=== PATIENT | male | born 1945 | race African-American/Black ===

== ENCOUNTER 2021-07-08 09:35 | Emergency (ER) | payer MEDICARE, MEDICAID ==
[~2021-07-08] VITALS: Ht 177.8 cm; Wt 66.0 kg
[2021-07-08 09:44] VITALS: BP 137/82
[2021-07-08] MEDS ORDERED: ONDANSETRON HCL 4MG/2ML INJ IV STA (10:12)
== END 2021-07-08 10:26 | disposition left against medical advice (07) ==
LOC: ER 09:56
DX: R22.31 Localized swelling, mass and lump, right upper limb (principal)
CPT/HCPCS: 93005; 99283

== ENCOUNTER 2021-07-15 11:07 | Emergency (ER) | payer MEDICARE, MEDICAID ==
[~2021-07-15] VITALS: Ht 177.8 cm; Wt 66.0 kg
[2021-07-15 13:24] LABS: HEMATOCRIT. 33.4 % (42.0-52.0); HEMOGLOBIN. 9.8 g/dL (14.0-18.0); MEAN CORPUSCULAR HEMOGLOBIN 19.9 pg (28.0-32.0); MEAN CORPUSCULAR VOLUME 67.7 fL (80.0-94.0); MEAN PLATELET VOLUME 8.3 fl (7.4-10.4); PLATELET 515 x1000/uL (130-400); RED BLOOD CELL COUNT 4.94 mill/uL (4.7-6.1); RED CELL DISTRIBUTION WIDTH 20.4 % (11.6-14.6)
[2021-07-15 13:39] LABS: CHLORIDE 108 mEq/L (98-107)
[2021-07-15] MEDS ORDERED: IBUPROFEN 800MG TABLET PO ONE (13:45)
[2021-07-15 13:51] LABS: PLATELET ESTIMATE INCREASED
[2021-07-15 13:53] VITALS: BP 170/97
[2021-07-15] MEDS ORDERED: IBUP-2030 MT (14:09)
== END 2021-07-15 14:53 | disposition home or self-care (01) ==
LOC: ER 11:07
DX: M70.21 Olecranon bursitis, right elbow (principal); I10 Essential (primary) hypertension
CPT/HCPCS: 36415; 80053; 85025; 86140; 99283

== ENCOUNTER 2021-11-19 15:56 | Emergency (ER) | payer MEDICARE, MEDICAID ==
[~2021-11-19] VITALS: Ht 167.6 cm; Wt 52.0 kg
[~2021-11-19 15:56] MED LIST: IBUP-2030 MT
[2021-11-19] MEDS ORDERED: ACETAMINOPHEN 325MG TABLET PO STA (16:16)
[2021-11-19] MEDS ORDERED: SODIUM CHLORIDE 0.9% 1000ML BAG (SEPSIS BOLUS) IV ONE (16:30)
[2021-11-19 17:32] LABS: HEMATOCRIT. 32.9 % (42.0-52.0); HEMOGLOBIN. 10.1 g/dL (14.0-18.0); MEAN CORPUSCULAR HEMOGLOBIN 21.8 pg (28.0-32.0); MEAN CORPUSCULAR VOLUME 71.2 fL (80.0-94.0); MEAN PLATELET VOLUME 6.6 fl (7.4-10.4); PLATELET 838 x1000/uL (130-400); RED BLOOD CELL COUNT 4.63 mill/uL (4.7-6.1); RED CELL DISTRIBUTION WIDTH 20.4 % (11.6-14.6)
[2021-11-19 17:45] LABS: CHLORIDE 102 mEq/L (98-107)
[2021-11-19 18:13] LABS: PLATELET ESTIMATE INCREASED
[2021-11-20 07:20] VITALS: BP 111/62
== END 2021-11-20 07:22 | disposition home or self-care (01) ==
LOC: ER 15:56
DX: M25.552 Pain in left hip (principal); L89.229 Pressure ulcer of left hip, unspecified stage; I48.92 Unspecified atrial flutter; I25.10 Atherosclerotic heart disease of native coronary artery without angina pectoris; F20.9 Schizophrenia, unspecified; K21.9 Gastro-esophageal reflux disease without esophagitis; D64.9 Anemia, unspecified; Z79.82 Long term (current) use of aspirin
CPT/HCPCS: 36415; 80053; 85025; 87040; 87076; 93005; 99284; J7030

== ENCOUNTER 2021-11-21 13:25 | Inpatient (IN) | payer MEDICARE, MEDICAID ==
[~2021-11-21] VITALS: Ht 167.6 cm; Wt 50.8 kg
[2021-11-21] MEDS ORDERED: PIPERACILLIN/TAZOBACTAM 3.375GM/50ML PREMIX IV STA (13:56)
[2021-11-21] MEDS ORDERED: VANCOMYCIN 1G PREMIX 200 ML IV STA (13:56)
[2021-11-21] MEDS ORDERED: SODIUM CHLORIDE 0.9% 1,500 ML IV ONE (14:00)
[2021-11-21] MEDS ORDERED: IBUPROFEN 400MG TABLET PO ONE (14:30)
[2021-11-21] MEDS ORDERED: ACETAMINOPHEN 325MG TABLET PO ONE (14:30)
[2021-11-21 15:37] LABS: HEMATOCRIT. 34.9 % (42.0-52.0); HEMOGLOBIN. 10.3 g/dL (14.0-18.0); MEAN CORPUSCULAR HEMOGLOBIN 22.1 pg (28.0-32.0); MEAN CORPUSCULAR VOLUME 74.9 fL (80.0-94.0); MEAN PLATELET VOLUME 7.1 fl (7.4-10.4); RED BLOOD CELL COUNT 4.66 mill/uL (4.7-6.1); RED CELL DISTRIBUTION WIDTH 20.4 % (11.6-14.6)
[2021-11-21 15:42] LABS: CHLORIDE 105 mEq/L (98-107)
[2021-11-21 15:44] LABS: PLATELET 1010 x1000/uL (130-400)
[2021-11-21 15:59] LABS: ETHANOL BLOOD < 10 mg/dL
[2021-11-21 16:11] LABS: PLATELET ESTIMATE MARKEDLY INCREASED
[2021-11-21] MEDS ORDERED: LIDOCAINE HCL/EPINEPHRINE 1%-EPI 1:100,000 20 ML VIAL INFIL NR (16:32)
[2021-11-21] MEDS ORDERED: NOREPINEPHRINE 8 MG in DEXT 5% WATER 242 ML IV STA ×2 (17:44→17:55)
[2021-11-21] MEDS ORDERED: ACETAMINOPHEN 650MG SUPP PR PRN (19:15)
[2021-11-21] MEDS ORDERED: NALOXONE HCL 0.4MG/ML VIAL IV PRN (19:15)
[2021-11-21] MEDS ORDERED: ONDANSETRON HCL 4MG/2ML INJ IV PRN (19:15)
[2021-11-21] MEDS ORDERED: PIPERACILLIN/TAZ 3.375G PREMIX 50 ML IV NR (19:15)
[2021-11-21] MEDS: DEXT 5%/0.45% NACL 1000ML 1,000 ML IV SCH (19:40)
[2021-11-21] MEDS: ENOXAPARIN 40MG/0.4ML SYR SUBCUT SCH (19:53)
[2021-11-21] MEDS ORDERED: DEXTROSE 50% WATER 50ML SYRINGE IV PRN ×2 (23:45)
[2021-11-22] VITALS (82 sets, daily range): BP systolic 53–177; BP diastolic 16–102
[2021-11-22 00:14] LABS: CLARITY URINE CLOUDY (CLEAR); COLOR URINE DARK YELLOW (YELLOW); KETONES URINE TRACE (NEGATIVE); LEUKOCYTE ESTERASE URINE 1+ (NEGATIVE); NITRITE URINE NEGATIVE (NEGATIVE); OCCULT BLOOD URINE TRACE (NEGATIVE); PROTEIN URINE 1+ (NEGATIVE); SPECIFIC GRAVITY URINE 1.024 (1.005-1.030)
[2021-11-22 00:37] LABS: *AMPHETAMINES SCREEN URINE NEGATIVE (NEGATIVE); *BARBITURATES SCREEN URINE NEGATIVE (NEGATIVE); *BENZODIAZEPINES SCREEN URINE NEGATIVE (NEGATIVE); *COCAINE SCREEN URINE NEGATIVE (NEGATIVE); CANNABINOID URINE SCREEN NEGATIVE (NEGATIVE); METHADONE URINE SCREEN NEGATIVE (NEGATIVE); OPIATES URINE SCREEN PRESUMTIVE POSITIVE (NEGATIVE); PHENCYCLIDINE URINE SCREEN NEGATIVE (NEGATIVE)
[2021-11-22] MEDS: HYDROMORPHONE HCL/PF 2MG/ML CPJ IV PRN ×2 (02:51→18:50)
[2021-11-22] MEDS ORDERED: AMIN30LI2 PO (03:11)
[2021-11-22] MEDS ORDERED: MULT-1223 PO (03:11)
[2021-11-22] MEDS ORDERED: FERR-63 (03:11)
[2021-11-22] MEDS ORDERED: DOCU250C69 MT (03:11)
[2021-11-22] MEDS ORDERED: ARIP15TA14 MT (03:11)
[2021-11-22] MEDS ORDERED: ASPI-986 PO (03:11)
[2021-11-22] MEDS ORDERED: FOLI-43 MT (03:11)
[2021-11-22] MEDS ORDERED: LEVO150T8 PO (03:11)
[2021-11-22] MEDS ORDERED: GABA-532 PO (03:11)
[2021-11-22] MEDS ORDERED: ASCO-339 MT (03:11)
[2021-11-22] MEDS ORDERED: TRAZ-251 MT (03:11)
[2021-11-22] MEDS ORDERED: METO5TAB2 MT (03:11)
[2021-11-22] MEDS ORDERED: HYDR-4001 PO (03:11)
[2021-11-22 05:12] LABS: HEMATOCRIT. 29.5 % (42.0-52.0); HEMOGLOBIN. 8.5 g/dL (14.0-18.0); MEAN CORPUSCULAR HEMOGLOBIN 21.3 pg (28.0-32.0); MEAN CORPUSCULAR VOLUME 73.6 fL (80.0-94.0); MEAN PLATELET VOLUME 6.9 fl (7.4-10.4); PLATELET 841 x1000/uL (130-400); RED BLOOD CELL COUNT 4.01 mill/uL (4.7-6.1); RED CELL DISTRIBUTION WIDTH 20.5 % (11.6-14.6)
[2021-11-22 05:28] LABS: CHLORIDE 103 mEq/L (98-107)
[2021-11-22] MEDS: BLOOD SUGAR DIAGNOSTIC STRIP TEST SCH ×4 (05:37→21:28)
[2021-11-22 05:39] LABS: T4 FREE 1.28 ng/dL (0.76-1.46)
[2021-11-22] MEDS: DEXT 5%/0.45% NACL 1000ML 1,000 ML IV SCH ×3 (05:40→20:40)
[2021-11-22] MEDS: INSULIN LISPRO 100 UNITS/ML SUBCUT SCH ×5 (05:40→21:00)
[2021-11-22] MEDS ORDERED: PIPERACILLIN/TAZOBACTAM 3.375 G in DEXTROSE 5% WATER 50 ML IV SCH (06:00)
[2021-11-22] MEDS ORDERED: BLOOD SUGAR DIAGNOSTIC STRIP TEST SCH (06:30)
[2021-11-22 07:56] LABS: PLATELET ESTIMATE INCREASED
[2021-11-22] MEDS: VANCOMYCIN 500MG PREMIX 100 ML IV SCH ×2 (09:46→18:09)
[2021-11-22] MEDS ORDERED: BUPIVACAINE HCL 0.5% (5MG/ML) 50ML ONE (11:05)
[2021-11-22] MEDS ORDERED: HYDROMORPHONE HCL/PF 2MG/ML CPJ ONE (11:34)
[2021-11-22] MEDS ORDERED: ETOMIDATE 2MG/ML 10ML VIAL IV ONE (11:35)
[2021-11-22] MEDS ORDERED: PROPOFOL 200MG/20ML VIAL IV ONE (11:35)
[2021-11-22] MEDS ORDERED: ROCURONIUM BROMIDE 10MG/ML VIAL 5ML IV ONE (11:36)
[2021-11-22] MEDS ORDERED: VANCOMYCIN 1G PREMIX 200 ML IV SCH (12:00)
[2021-11-22] MEDS ORDERED: PHENYLEPHRINE HCL 10 MG/ML 1ML (IV VIAL) IV ONE (12:07)
[2021-11-22] MEDS: MIDODRINE HCL 5MG TABLET PO SCH ×2 (12:08→16:13)
[2021-11-22] MEDS ORDERED: NEOSTIGMINE METHYLSULFATE 1MG/ML 10 ML VIAL ONE (12:34)
[2021-11-22] MEDS ORDERED: GLYCOPYRROLATE 0.2 MG/ML 2ML VIAL ONE ×2 (12:34)
[2021-11-22] MEDS: PIPERACILLIN/TAZOBACTAM 3.375 G in DEXTROSE 5% WATER 50 ML IV SCH ×2 (13:33→21:19)
[2021-11-22 15:26] LABS: HEMATOCRIT 30.4 % (42.0-52.0); HEMOGLOBIN 8.6 g/dL (14.0-18.0)
[2021-11-22] MEDS: PHENYLEPHRINE 50 MG in DEXT 5% WATER 245 ML IV PRN (21:14)
[2021-11-22] MEDS: ENOXAPARIN 40MG/0.4ML SYR SUBCUT SCH (21:19)
[2021-11-23] VITALS (61 sets, daily range): BP systolic 78–217; BP diastolic 44–122
[2021-11-23] MEDS: VANCOMYCIN 500MG PREMIX 100 ML IV SCH (05:19)
[2021-11-23] MEDS: PIPERACILLIN/TAZOBACTAM 3.375 G in DEXTROSE 5% WATER 50 ML IV SCH ×3 (05:19→21:17)
[2021-11-23] MEDS: PHENYLEPHRINE 50 MG in DEXT 5% WATER 245 ML IV PRN (05:33)
[2021-11-23] MEDS: BLOOD SUGAR DIAGNOSTIC STRIP TEST SCH ×4 (06:49→21:17)
[2021-11-23] MEDS: INSULIN LISPRO 100 UNITS/ML SUBCUT SCH ×4 (06:50→21:00)
[2021-11-23] MEDS: MIDODRINE HCL 5MG TABLET PO SCH ×3 (09:53→16:59)
[2021-11-23] MEDS ORDERED: LIDOCAINE HCL 1% 10 MG/ML 10ML VIAL ONE ×2 (10:47→11:35)
[2021-11-23 11:50] LABS: HEMATOCRIT. 27.9 % (42.0-52.0); HEMOGLOBIN. 8.4 g/dL (14.0-18.0); MEAN CORPUSCULAR VOLUME 73.4 fL (80.0-94.0); MEAN PLATELET VOLUME 6.8 fl (7.4-10.4); PLATELET 922 x1000/uL (130-400); RED BLOOD CELL COUNT 3.81 mill/uL (4.7-6.1); RED CELL DISTRIBUTION WIDTH 20.7 % (11.6-14.6)
[2021-11-23] MEDS: DEXT 5%/0.45% NACL 1000ML 1,000 ML IV SCH (11:54)
[2021-11-23 12:05] LABS: VANCOMYCIN TROUGH 25.9 ug/mL (5.0-10.0)
[2021-11-23] MEDS ORDERED: ENOXAPARIN 30MG/0.3ML SYR SUBCUT SCH ×2 (13:45→20:00)
[2021-11-23 13:58] LABS: PLATELET ESTIMATE MARKEDLY INCREASED
[2021-11-23] MEDS: HYDROMORPHONE HCL/PF 2MG/ML CPJ IV PRN (16:41)
[2021-11-24] VITALS (59 sets, daily range): BP systolic 89–171; BP diastolic 43–103
[2021-11-24] MEDS: DEXT 5%/0.45% NACL 1000ML 1,000 ML IV SCH ×2 (04:25→07:14)
[2021-11-24] MEDS: PIPERACILLIN/TAZOBACTAM 3.375 G in DEXTROSE 5% WATER 50 ML IV SCH ×2 (05:26→14:40)
[2021-11-24] MEDS: BLOOD SUGAR DIAGNOSTIC STRIP TEST SCH ×3 (06:11→17:24)
[2021-11-24] MEDS: INSULIN LISPRO 100 UNITS/ML SUBCUT SCH ×3 (06:11→17:00)
[2021-11-24] MEDS: MIDODRINE HCL 5MG TABLET PO SCH ×3 (08:41→17:00)
[2021-11-24] MEDS ORDERED: VANCOMYCIN 500MG PREMIX 100 ML IV SCH (09:00)
[2021-11-24] MEDS ORDERED: SODIUM CHLORIDE 0.9% 1,000 ML IV SCH (11:45)
[2021-11-24] MEDS: HYDROMORPHONE HCL/PF 2MG/ML CPJ IV PRN (14:50)
== END 2021-11-24 20:37 | DRG 853 ==
LOC: ER 13:25 → MICUNO 15:39 → EDBEDREQ 15:48 → CANRESERV 16:31 → ENRESERV 16:31 → EDBEDREQSVC 17:26 → ENRESERV 23:06
PROVIDERS: ADMIT Hospitalist; ATTEND Hospitalist
PROC: 0S9B0ZZ Drainage of Left Hip Joint, Open Approach (ICD-10-PCS; principal; 2021-11-22)
PROC: 06HY33Z Insertion of Infusion Device into Lower Vein, Percutaneous Approach (ICD-10-PCS; 2021-11-23)
DX: A41.01 Sepsis due to Methicillin susceptible Staphylococcus aureus (principal); R65.21 Severe sepsis with septic shock; E43 Unspecified severe protein-calorie malnutrition; G82.20 Paraplegia, unspecified; N39.0 Urinary tract infection, site not specified; L02.416 Cutaneous abscess of left lower limb; M86.8X8 Other osteomyelitis, other site; L89.159 Pressure ulcer of sacral region, unspecified stage; Z66 Do not resuscitate; E87.5 Hyperkalemia; Z20.822 Contact with and (suspected) exposure to COVID-19; I10 Essential (primary) hypertension; N21.0 Calculus in bladder; K57.90 Diverticulosis of intestine, part unspecified, without perforation or abscess without bleeding; D75.839 Thrombocytosis, unspecified; F17.210 Nicotine dependence, cigarettes, uncomplicated; F20.9 Schizophrenia, unspecified; I25.10 Atherosclerotic heart disease of native coronary artery without angina pectoris; S70.02XA Contusion of left hip, initial encounter; K21.9 Gastro-esophageal reflux disease without esophagitis; D64.9 Anemia, unspecified; G60.9 Hereditary and idiopathic neuropathy, unspecified; Z79.82 Long term (current) use of aspirin; Z91.19 Patient's noncompliance with other medical treatment and regimen; D50.9 Iron deficiency anemia, unspecified; B96.89 Other specified bacterial agents as the cause of diseases classified elsewhere; B95.4 Other streptococcus as the cause of diseases classified elsewhere; X58.XXXA Exposure to other specified factors, initial encounter; Y93.89 Activity, other specified; Y92.89 Other specified places as the place of occurrence of the external cause; Y99.8 Other external cause status
CPT/HCPCS: 36415; 71045; 72192; 76937; 80048; 80053; 80076; 80202; 80305; 80307; 80320; 80329; 81003; 82140; 82962; 83605; 83930; 84145; 84439; 84443; 85014; 85018; 85025; 86592; 87070; 87075; 87076; 87077; 87186; 87426; 93005; 99285; C1725; C1887; J1170; J1650; J1815; J2370; J2405; J2543; J2704; J2710; J3370; J3490; J7030; J7060; A4315; A5200; G0480